=== PATIENT | male | born 1945 | race Caucasian/White ===

== ENCOUNTER 2025-08-28 17:43 | Inpatient (IN) | payer MEDICARE, SELFPAY ==
[2025-08-28] VITALS (7 sets, daily range): BP systolic 125–151; BP diastolic 76–104; PULSE 84; BMI 17.2
--- NOTE | 2025-08-28 12:18 | ED.GENMED ---
History of Present Illness
<Ashlee Escobedo, CARDING MACHINE OPERATOR - Last Filed: 08/28/25 19:21>
General
Chief Complaint: Failure to Thrive
Source: patient, records and family (Spoke with son Albino on the phone)
Exam Limitations: clinical condition
Time Seen by Provider: 08/28/25 12:14
Nursing documentation reviewed up to this point in time: agreed with
History of Present Illness
History of Present Illness:
79-year-old male from [facility] with history of anemia, aphasia, HTN, gait dysfunction, Parkinson's, anxiety, CKD, HLD, encephalopathy, TBI, attempting to answer questions and very mild whispers, unable to understand.
Spoke with Arabella DAVEY, states the DON has reported that pt has lost 17 pounds since May, and he has not been eating. Sent here for weight loss.
Phy Exam
<Ashlee Escobedo, CARDING MACHINE OPERATOR - Last Filed: 08/28/25 19:21>
Physical Exam
Physical Exam:
GENERAL: No acute distress. Alert. Cachectic. Frail.
CONSTITUTIONAL: Afebrile.
EYES: clear, conjunctivae normal
ENMT: dry mucus membranes
RESPIRATORY: Regular respirations, nonlabored, lungs clear.
CARDIOVASCULAR: Regular rate and rhythm, no murmurs, no rubs.
GI: Soft, nontender, normal BS
MUSCULOSKELETAL: Moves with ease. Well perfused.
SKIN: Warm, dry, pale
PSYCH: Normal mood and affect. Well kept, interactive and appropriate
NEUROLOGIC: Awake, alert, follows commands, No focal neurological deficits
Course
<Ashlee Escobedo CARDING MACHINE OPERATOR - Last Filed: 08/28/25 19:21>
Orders/Labs/Results
Orders:
Orders
08/28/25
Electrocardiogram (*1) Stat
Reason for Study: Chest Pain
Comment: DONE
08/28/25 12:18
Complete Blood Count/With Diff Urgent
Comprehensive Metabolic Panel Urgent
08/28/25 12:57
Case Management Consult ONCE
Case Management Consult: Discharge Planning
Comment: Family want him to go to another facility.
08/28/25 13:01
CT Head W/o Iv Contrast Urgent
Comment:
Reason For Exam: change in mental state
08/28/25 13:41
Occupational Therapy Consult [Ot Eval And Treat] Urgent
Treatment: eval for NH placement
Physical Therapy Consult [Pt Eval And Treat] Urgent
Activity Level: As Tolerated
08/28/25 14:37
0.9% Sodium Chloride 1000 ml [Nss] 1,000 ml IV BOLUS
08/28/25 15:10
Urinalysis Reflex To Culture Urgent
Date Specimen was Collected: 08/28/25
Time Specimen was Collected: 15:08
Urine Microscopic Reflex Cult Urgent
Urine Culture Urgent
DEMETRIO Source: U
Specimen Description:
Date Specimen was Collected: 08/28/25
Time Specimen was Collected: 15:08
08/28/25 15:56
Fosfomycin [Monurol] 3 gm PO ONCE ONE
08/28/25 16:19
CefTRIAXone [Rocephin] 1,000 mg .ROUTE .STK-MED ONE
08/28/25 16:22
CefTRIAXone [Rocephin] 1,000 mg IV NOW STA
08/28/25 16:54
Admit/Transfer Patient As Directed
Co-Sign Provider:
Level of Care: Inpatient admission
Assign to:: Medical/Surgical
Physician / Group: brittany may
Diagnosis: UTI
Reason for Hospitalization: UTI
Expected length of stay greater than two midnights?: Yes
ELOS- Estimated Length of Stay in days: 3
I certify the patient meets the requirements for IP care: Yes
08/28/25 16:55
PRN Pain Medication Management As Directed
May give lesser potent ordered pain med per pt: Yes
preference::
Protocol:: Medication orders for pain may be administered in a
manner that supports deferring to patient preference
when the pt is:
- Requesting an ordered lesser potent pain medication.
Least to most potent pain medications are defined
as: acetaminophen < NSAID < tramadol < opioids
(morphine, oxycodone, hydromorphone).
- Requesting a lesser dose of the same medication IF
ORDERED.
- Requesting a less intrusive route of administration
if both routes are prescribed by the provider (PO <
IV).
08/28/25 16:56
Code Status As Directed
Resuscitation Status: Do not resuscitate
Reached after discussion with pt or family/Healthcare POA: Yes
08/28/25 16:57
DNR Bracelet Application ONCE
08/28/25 18:45
0.9% Sodium Chloride 1000 ml [Nss] 1,000 ml IV 80 mls/hr
Acetaminophen [Tylenol] 650 mg PO Q4HPRN PRN
Bisacodyl [Dulcolax] 10 mg RECTAL [id number] PRN
Docusate W/Senna [Senokot-S] 1 tablet PO BIDPRN PRN
Polyethylene Glycol Powder [Miralax] 17 grams PO DAILYPRN PRN
08/28/25 18:45
Activity As Directed
Activity Level: As Tolerated
Vital Signs As Directed
Frequency: Per unit guidelines
Speech Therapy Eval & Treat Routine
DX Deep Vein Thrombosis Video Routine
08/28/25 19:09
Clonazepam [Klonopin] 0.125 mg PO TIDPRN PRN
08/28/25 20:00
Heparin 5,000 units SC Q12
trospium 20 mg PO BID
08/28/25 22:00
Amantadine [Symmetrel] 100 mg PO TID
Atorvastatin [Lipitor] 10 mg PO HS
Carbidopa/Levodopa [Sinemet 25-100] 2 tablet PO TID
Clonazepam [Klonopin] 0.125 mg PO HS
Melatonin 3 mg PO HS
Mirtazapine [Remeron] 7.5 mg PO HS
08/29/25 Breakfast
IDDSI 6 - Soft & Bite Sized
Liquid Modification: Mildly Thick ([place])
Basic Metabolic Panel IN AM
Complete Blood Count/No Diff IN AM
08/29/25 08:00
Carbidopa/Levodopa [Sinemet 25-100] 1.5 tablet PO DAILY
Carbidopa/Levodopa [Sinemet 25-100] 2.5 tablet PO DAILY
Docusate Sodium [Colace] 100 mg PO DAILY
FOLic ACID [Folvite] 1 mg PO DAILY
Lidocaine [Lidocaine 4% Patch] 1 patch TOPICAL DAILY
Apply Lidocaine patch(s) to:: lower back
Midodrine [ProAmatine] 2.5 mg PO DAILY
lidocaine 1 applic TOPICAL DAILY
08/29/25 16:00
CefTRIAXone [Rocephin] 1,000 mg IV Q24H
08/30/25 06:00
Basic Metabolic Panel IN AM
Complete Blood Count/No Diff IN AM
08/31/25 06:00
Basic Metabolic Panel IN AM
Complete Blood Count/No Diff IN AM
09/01/25 06:00
Basic Metabolic Panel IN AM
Complete Blood Count/No Diff IN AM
Abnormal Lab Results
08/28/25 08/28/25
12:18 15:10
WBC 11.7 H 10^3/uL
(4.8-10.8)
RBC 4.48 L 10^6/uL
(4.70-6.10)
Hgb 12.9 L g/dL
(13.0-18.0)
Hct 38.6 L %
(39.0-52.0)
Abs Immat Gran (auto) 0.1 H 10^3/uL
(0-0.05)
Absolute Neuts (auto) 9.8 H 10^3/uL
(1.4-6.5)
Absolute Lymphs (auto) 0.8 L 10^3/uL
(1.2-3.4)
Absolute Monos (auto) 0.9 H 10^3/uL
(0.1-0.6)
Neutrophils % 84.1 H %
(42.2-75.2)
Lymphocytes % 7.1 L %
(20.5-51.1)
Chloride 112 H mmol/L
(98-107)
BUN 74 H mg/dl
(9-20)
Creatinine 1.4 H mg/dL
(0.7-1.3)
Urine Ketones 1+ A
(Negative)
Ur Occult Blood Reflex 1+ A
(Negative)
Leukocyte Esterase Rfl 3+ A
(Negative)
Urine WBC (Reflex) 60-70 A /HPF
(0-5)
Urine Bacteria (Reflex) Many A
(Negative)
Urine Albumin (Reflex) 2+ A
(Neg - Trace)
08/28/25 12:18
08/28/25 12:18
Vital Signs
Initial and Last Documented VS:
Initial Vital Signs
Temp Pulse Resp Pulse Ox
97.8 F 88 18 99
08/28/25 12:11 08/28/25 12:11 08/28/25 12:11 08/28/25 12:11
Last Documented Vital Signs
Temp Pulse Resp BP Pulse Ox
98.0 F 79 17 132/80 97
08/28/25 19:02 08/28/25 19:02 08/28/25 19:02 08/28/25 19:02 08/28/25 19:02
Project Product Manager consulted with Physician
Project Product Manager consulted with physician?: Yes
Name of Physician Consulted: Milton
<Seth Dinh Rose, DO - Last Filed: 08/28/25 16:37>
Orders/Labs/Results
Orders:
Orders
08/28/25
Electrocardiogram (*1) Stat
Reason for Study: Chest Pain
Comment: DONE
08/28/25 12:18
Complete Blood Count/With Diff Urgent
Comprehensive Metabolic Panel Urgent
08/28/25 12:57
Case Management Consult ONCE
Case Management Consult: Discharge Planning
Comment: Family want him to go to another facility.
08/28/25 13:01
CT Head W/o Iv Contrast Urgent
Comment:
Reason For Exam: change in mental state
08/28/25 13:41
Occupational Therapy Consult [Ot Eval And Treat] Urgent
Treatment: eval for NH placement
Physical Therapy Consult [Pt Eval And Treat] Urgent
Activity Level: As Tolerated
08/28/25 14:37
0.9% Sodium Chloride 1000 ml [Nss] 1,000 ml IV BOLUS
08/28/25 15:10
Urinalysis Reflex To Culture Urgent
Date Specimen was Collected: 08/28/25
Time Specimen was Collected: 15:08
Urine Microscopic Reflex Cult Urgent
Urine Culture Urgent
DEMETRIO Source: U
Specimen Description:
Date Specimen was Collected: 08/28/25
Time Specimen was Collected: 15:08
08/28/25 15:56
Fosfomycin [Monurol] 3 gm PO ONCE ONE
08/28/25 16:19
CefTRIAXone [Rocephin] 1,000 mg .ROUTE .STK-MED ONE
08/28/25 16:22
CefTRIAXone [Rocephin] 1,000 mg IV NOW STA
08/28/25 16:54
Admit/Transfer Patient As Directed
Co-Sign Provider:
Level of Care: Inpatient admission
Assign to:: Medical/Surgical
Physician / Group: brittany may
Diagnosis: UTI
Reason for Hospitalization: UTI
Expected length of stay greater than two midnights?: Yes
ELOS- Estimated Length of Stay in days: 3
I certify the patient meets the requirements for IP care: Yes
08/28/25 16:55
PRN Pain Medication Management As Directed
May give lesser potent ordered pain med per pt: Yes
preference::
Protocol:: Medication orders for pain may be administered in a
manner that supports deferring to patient preference
when the pt is:
- Requesting an ordered lesser potent pain medication.
Least to most potent pain medications are defined
as: acetaminophen < NSAID < tramadol < opioids
(morphine, oxycodone, hydromorphone).
- Requesting a lesser dose of the same medication IF
ORDERED.
- Requesting a less intrusive route of administration
if both routes are prescribed by the provider (PO <
IV).
08/28/25 16:56
Code Status As Directed
Resuscitation Status: Do not resuscitate
Reached after discussion with pt or family/Healthcare POA: Yes
08/28/25 16:57
DNR Bracelet Application ONCE
08/28/25 18:45
0.9% Sodium Chloride 1000 ml [Nss] 1,000 ml IV 80 mls/hr
Acetaminophen [Tylenol] 650 mg PO Q4HPRN PRN
Bisacodyl [Dulcolax] 10 mg RECTAL [id number] PRN
Docusate W/Senna [Senokot-S] 1 tablet PO BIDPRN PRN
Polyethylene Glycol Powder [Miralax] 17 grams PO DAILYPRN PRN
08/28/25 18:45
Activity As Directed
Activity Level: As Tolerated
Vital Signs As Directed
Frequency: Per unit guidelines
Speech Therapy Eval & Treat Routine
DX Deep Vein Thrombosis Video Routine
08/28/25 19:09
Clonazepam [Klonopin] 0.125 mg PO TIDPRN PRN
08/28/25 20:00
Heparin 5,000 units SC Q12
trospium 20 mg PO BID
08/28/25 22:00
Amantadine [Symmetrel] 100 mg PO TID
Atorvastatin [Lipitor] 10 mg PO HS
Carbidopa/Levodopa [Sinemet 25-100] 2 tablet PO TID
Clonazepam [Klonopin] 0.125 mg PO HS
Melatonin 3 mg PO HS
Mirtazapine [Remeron] 7.5 mg PO HS
08/29/25 Breakfast
IDDSI 6 - Soft & Bite Sized
Liquid Modification: Mildly Thick ([place])
Basic Metabolic Panel IN AM
Complete Blood Count/No Diff IN AM
08/29/25 08:00
Carbidopa/Levodopa [Sinemet 25-100] 1.5 tablet PO DAILY
Carbidopa/Levodopa [Sinemet 25-100] 2.5 tablet PO DAILY
Docusate Sodium [Colace] 100 mg PO DAILY
FOLic ACID [Folvite] 1 mg PO DAILY
Lidocaine [Lidocaine 4% Patch] 1 patch TOPICAL DAILY
Apply Lidocaine patch(s) to:: lower back
Midodrine [ProAmatine] 2.5 mg PO DAILY
lidocaine 1 applic TOPICAL DAILY
08/29/25 16:00
CefTRIAXone [Rocephin] 1,000 mg IV Q24H
08/30/25 06:00
Basic Metabolic Panel IN AM
Complete Blood Count/No Diff IN AM
08/31/25 06:00
Basic Metabolic Panel IN AM
Complete Blood Count/No Diff IN AM
09/01/25 06:00
Basic Metabolic Panel IN AM
Complete Blood Count/No Diff IN AM
Abnormal Lab Results
08/28/25 08/28/25
12:18 15:10
WBC 11.7 H 10^3/uL
(4.8-10.8)
RBC 4.48 L 10^6/uL
(4.70-6.10)
Hgb 12.9 L g/dL
(13.0-18.0)
Hct 38.6 L %
(39.0-52.0)
Abs Immat Gran (auto) 0.1 H 10^3/uL
(0-0.05)
Absolute Neuts (auto) 9.8 H 10^3/uL
(1.4-6.5)
Absolute Lymphs (auto) 0.8 L 10^3/uL
(1.2-3.4)
Absolute Monos (auto) 0.9 H 10^3/uL
(0.1-0.6)
Neutrophils % 84.1 H %
(42.2-75.2)
Lymphocytes % 7.1 L %
(20.5-51.1)
Chloride 112 H mmol/L
(98-107)
BUN 74 H mg/dl
(9-20)
Creatinine 1.4 H mg/dL
(0.7-1.3)
Urine Ketones 1+ A
(Negative)
Ur Occult Blood Reflex 1+ A
(Negative)
Leukocyte Esterase Rfl 3+ A
(Negative)
Urine WBC (Reflex) 60-70 A /HPF
(0-5)
Urine Bacteria (Reflex) Many A
(Negative)
Urine Albumin (Reflex) 2+ A
(Neg - Trace)
08/28/25 12:18
08/28/25 12:18
Vital Signs
Initial and Last Documented VS:
Initial Vital Signs
Temp Pulse Resp Pulse Ox
97.8 F 88 18 99
08/28/25 12:11 08/28/25 12:11 08/28/25 12:11 08/28/25 12:11
Last Documented Vital Signs
Temp Pulse Resp BP Pulse Ox
98.0 F 79 17 132/80 97
08/28/25 19:02 08/28/25 19:02 08/28/25 19:02 08/28/25 19:02 08/28/25 19:02
<Ashlee Escobedo, CARDING MACHINE OPERATOR - Last Filed: 08/28/25 19:21>
MDM/Problems Addressed
Differential Diagnosis Includes:
Failure to thrive, dehydration
MDM/Problems Addressed:
79-year-old male from [facility] with history of anemia, aphasia, HTN, gait dysfunction, Parkinson's, anxiety, CKD, HLD, encephalopathy, TBI, attempting to answer questions and very mild whispers, unable to understand.
Spoke with Arabella DAVEY, states the DON has reported that pt has lost 17 pounds since May, and he has not been eating. Sent here for weight loss.
When asked if he has any pain, pt states 'no.'
He appears in no acute distress.
CBC unremarkable
CMP unremarkable
EKG NSR
1:00 PM:
I spoke with son Albino, who states they want him out of that residential. He states family was hoping he could get a Neurologist to evaluate pt. for his change in status. He is not eating, his therapy has been discontinued...
I asked if I could speak frankly and he said yes, I told him I think his father is dying, it's not unusual to stop eating at this point. I have no reason medically to admit him. Have they considered Hospice or Palliative Care? He states again,
family was thinking if he could be admitted we could get him into a different place, they would start therapy up again and get him eating...
Head CT ordered
CM consult in.
I informed son CHAGO will call him after evaluation. He was appreciative of the care.
Pt called out 'Vaseline!' and states his butt hurts. Turned, sacrum reddened, skin intact, area massaged and ointment applied.
2:30 PM:
IVFs ordered for elevated BUN/creat (dehydration)
Head CT showing nothing acute
CM spoke with and got a much more detailed history.
4:00 p.m.
U/A: WBC 60-70, neg nitrite, 3+ leukocytes, many bacteria. Plan: Monurol and urine culture pending
Results that would indicate malnutrition such as albumin and total protein are normal
No medical indication for admission
CM informed pt would be going back to NH
4:15 p.m.
Pt with UTI, pt cannot swallow, will admit for IV antibiotics.
Son Albino notified
Hospitalist notified of admission.
<Ashlee Escobedo CARDING MACHINE OPERATOR - Last Filed: 08/28/25 19:21>
*Pulse Oximetry
SaO2: 99
Oxygen Mode of Delivery: Room air
Patient hypoxic: no
*EKG
EKG Intrepretation Date: 08/28/25
Interpretation: normal
Heart Rate: 88
Rate: normal
Rhythm: sinus
[place]: normal axis
Interval: normal interval
QRS Pattern: normal QRS
Ischemia: no ischemia
*Critical Care Note
Total Time (30-74mins, 75-104mins- exclusive of procedures): Not Applicable
ED Attending Note
<Ashlee Escobedo CARDING MACHINE OPERATOR - Last Filed: 08/28/25 19:21>
-
Portions of this chart may have been created with voice recognition software.� Occasional wrong word or��sound alike� substitutions may have occurred due to the inherent limitations of voice recognition software.
<Seth Rose DO - Last Filed: 08/28/25 16:37>
ED Attending Note
Patient seen and examined by attending physician: Yes
I performed the substantive portion of visit, reviewed & personally made and approve the management plan that is documented in note by myself or TATYANA.: Yes
ED Attending Note:
I evaluated the patient bedside. The patient is ill-appearing. Sunken eyes, very dry oral mucosa, creatinine is 1.4 with virtually no muscle mass, suspect significant dehydration. He was given IV fluids. 1+ ketonuria noted. Urinalysis suggest
infection as well.
Discharge Plan
Departure
Patient Disposition: Admit
Date of Disposition: 08/28/25
Time of Disposition: 16:20
Presentation/result/management discussed w/ accepting MD/DO: Hospitalist
Patient with high blood pressure during this ER visit?: No
Condition: Fair
Discharge Problem:
Adult failure to thrive, Acute UTI
Interventions
Interventions:
*Risk Screen - Suicide Last Done: 08/28/25 12:15
*General Assessment Last Done: 08/28/25 18:44
*Neglect/Abuse Screening Last Done: 08/28/25 12:15
*ED COVID-19 Vaccine History Last Done: 08/28/25 12:11
*ED Influenza Vaccine History Last Done: 08/28/25 12:11
*Nursing Disposition Last Done: 08/28/25 18:44
Discharge Date and Time
Discharge Date/Time: 08/28/25 18:45
[2025-08-28 12:32] LABS: Hematocrit 38.6 % (39.0-52.0); Hemoglobin 12.9 g/dL (13.0-18.0); Mean Corp Hgb Conc. 33.4 g/dL (33.0-37.0); Mean Corpuscular Volume 86.2 fL (80.0-94.0); Nucleated Red Blood Cells % 0 % (-); Platelet Count 317 10^3/uL (130-400); Red Cell Dist. Width 13.9 % (11.5-14.5)
[2025-08-28 12:40] LABS: ALT (SGPT) < 10 U/L (0-50); AST (SGOT) 19 U/L (17-59); Albumin 4.0 g/dl (3.5-5.0); Alkaline Phosphatase 108 U/L (38-126); Blood Urea Nitrogen 74 mg/dl (9-20); Calcium 10.1 mg/dl (8.4-10.2); Carbon Dioxide 26 mmol/L (22-30); Chloride 112 mmol/L (98-107); Glucose 89 mg/dl (70-99); Potassium 5.0 mmol/L (3.5-5.1); Sodium 145 mmol/L (135-145); Total Protein 7.1 g/dl (6.3-8.2); eGFR 51.45
[2025-08-28] MEDS: NSS 1000 IV ×2 (14:51→19:59)
--- NOTE | 2025-08-28 15:14 | CM ---
Addendum entered by Josie Fuentes 08/28/25 16:19:
Call from [facility]- pt will be planned for admission now
She will update family
Original Note:
ED CM consult for dc planning- family requesting alternative SNF arrangements
No plan for hospital admissions at this time
Call from spouse/Deanna Lagos (m) [phone] (h) [phone]
They are not interested in hospice at this time and are hopeful for continued to rehab
Pt and spouse typically reside together in a 2SH with 1 threshold step to enter in [place], full flight to 2nd floor
Up until April 2025, pt was AxO 3x, ambulatory with use of a WW or SPC and able to negotiate steps
Pt had fall secondary to Parkinsons in April 2025 and admitted to [facility]
He was discharged to [facility] and then to [facility]
Medicare LCD was 07/18/25 and pt has been private pay since
Of note, she noted a fall 2022 resulting in a brain bleed but pt had recovered from injury
Spouse notes rapid decline in physical abilities and cognition since admission to SNF
She has hired [facility] for estate planning and to assist to transfer to alternate SNF for LTC
She has tours scheduled with [facility], [facility], [facility] and [facility]
Pt has Medicare primary and without qualifying stay
Pt is not eligible for [employer] waiver
Calls with [facility] as financial marilia pending- closed for admissions
Per [facility], no LTC beds available until end of the week
Spouse aware pt without qualifying stay
Pt unable to be transferred to alternative SNF as a STR to LTC bridge
She will continue to work with assistant prosecuting attorney for LTC planning and transfer to new facility
She is aware and in agreement with return to [facility]
Update provided to [facility] nursing and has accepted for SNF return
Discharge Disposition- return [facility] LTC via BLS
Phone- [phone] Fax- [phone]
[2025-08-28 15:22] LABS: Urine Character Slightly Cloudy (Clear)
[2025-08-28 15:29] LABS: Urine Squamous Cell 0-2 /LPF (Few)
[2025-08-28 15:30] LABS: Urine Red Blood Cell 0-2 /HPF (0-2); Urine White Cell 60-70 /HPF (0-5)
[2025-08-28] MEDS: ROCEPHIN 1000 MG IV (16:35)
--- NOTE | 2025-08-28 16:36 | HPS.HSE ---
Family Physician
-
Family Physician: Enrique Little,
Chief Complaint
-
change in MS
History of Present Illness
79-year-old male from [facility] with history of anemia, aphasia, HTN, gait dysfunction, Parkinson's, anxiety, CKD, HLD, encephalopathy, TBI presented to us with change in mental status. patient had a fall secondary to Parkinson
disease in April.he was admitted to [facility] and from there he was transferred to [facility]. . since then, he has rapid decline physically and mentally. he is not eating and losing weight. he is also noted very fatigue and weak. family does not
want him at the same [facility].ROS is limited as he is not able to answer appropirately.
Upon arrival he was noted to have UTI. Initiated on ceftriaxone. Admitting for further management
Attempted to reach son. He is not answering the phone
Medical History
Past Medical History
Past Medical History: Reports Other
Additional Past Medical History:
CKD, anemia, anxiety, hypertension, severe protein calorie malnutrition, hyperlipidemia, toxic encephalopathy, Parkinson disease with dyskinesia, traumatic brain injury, aphasia, dysphagia
Past Surgical History: Reports Other
Social History
Unable to obtain full social history at this time due to: Dementia
Family History
Family History: Not pertinent
Allergies / Home Medications
Allergies reflects when Allergies were last updated in [facility].
Home Medications with original date entered in [facility]
Allergy/Medication List:
Allergies
Allergy/AdvReac Type Severity Reaction Status Date / Time
No Known Allergies Allergy Unverified 08/28/25 12:16
Home Medications
acetaminophen 325 mg tablet (Tylenol) 650 mg PO Q6HPRN PRN mild pain 08/28/25
amantadine HCl 100 mg capsule 100 mg PO TID parkinsons 08/28/25
bisacodyl 10 mg rectal suppository (Dulcolax (bisacodyl)) 10 mg HI DAILYPRN PRN if no bm by 3rd day give on 4th day 08/28/25
calcium 600 mg (as carbonate)-vitamin D3 10 mcg (400 unit) tablet (Calcium 600 + D(3)) 1 tab PO DAILY Supplement 08/28/25
carbidopa 25 mg-levodopa 100 mg tablet 1.5 tab PO DAILY parkinsons 08/28/25
carbidopa 25 mg-levodopa 100 mg tablet 2 tab PO TID 08/28/25
carbidopa 25 mg-levodopa 100 mg tablet 2.5 tab PO DAILY parkinsons 08/28/25
cholecalciferol (vitamin D3) 25 mcg (1,000 unit) tablet (Vitamin D3) 25 mcg PO DAILY Supplement 08/28/25
clonazepam 0.125 mg disintegrating tablet 0.125 mg PO HS Mental Health/Anxiety 08/28/25
clonazepam 0.125 mg disintegrating tablet 0.125 mg PO TIDPRN PRN anxiety 08/28/25
coQ10 (ubiquinol) 200 mg capsule 200 mg PO DAILY Supplement 08/28/25
docusate sodium 100 mg capsule (Colace) 100 mg PO DAILY Constipation 08/28/25
folic acid 1 mg tablet 1 mg PO DAILY Supplement 08/28/25
lidocaine 4 % topical gel 1 applic topical DAILY right knee 08/28/25
lidocaine 4 % topical patch 1 patch topical DAILY lower back 08/28/25
magnesium hydroxide 400 mg/5 mL oral suspension (Milk of Magnesia) 2,400 mg PO DAILYPRN PRN if no bm by 3rd day 08/28/25
melatonin 3 mg tablet 3 mg PO HS Sleep 08/28/25
midodrine 2.5 mg tablet 2.5 mg PO DAILY 08/28/25
mirtazapine 7.5 mg tablet 7.5 mg PO HS Sleep 08/28/25
selenium 200 mcg capsule 200 mcg PO DAILY Supplement 08/28/25
simvastatin 20 mg tablet (Zocor) 20 mg PO HS High Cholesterol 08/28/25
sodium phosphates 19 gram-7 gram/118 mL enema (Fleet Enema) 118 ml HI DAILYPRN PRN if no bm by the end on day 4 08/28/25
therapeutic multivitamin 1 tab PO DAILY Supplement 08/28/25
trospium 20 mg tablet 20 mg PO BID Urinary Issue 08/28/25
Review of Systems
-
Unable to obtain full review of systems at this time due to: Dementia
Physical Exam
Vital Signs
Vital Signs
Temp Pulse Resp BP Pulse Ox
97.8 F 84 16 125/104 98
08/28/25 12:11 08/28/25 15:07 08/28/25 15:07 08/28/25 15:07 08/28/25 15:07
Physical Exam
General: Well Developed, Well Nourished and No Apparent Distress
HEENT: NormoCephalic, Moist mucous membranes and Atraumatic
Respiratory: Clear
Cardiac: S1/S2 and Regular Rhythm; No Murmur or Rub
GI: Soft, Non Tender, Non Distended and Normal Bowel Sounds; No Organomegaly
Rectal: Deferred by Provider
Musculoskeletal: No Clubbing, No Cyanosis and No Edema
Skin: No Rash
Neuro: Nonfocal/grossly intact
Laboratory Results
-
08/28/25 12:18
08/28/25 12:18
Laboratory Results
Total Bilirubin 1.0 mg/dl (0.2-1.3) 08/28/25 12:18
AST 19 U/L (17-59) 08/28/25 12:18
ALT < 10 U/L (0-50) 08/28/25 12:18
Alkaline Phosphatase 108 U/L (38-126) 08/28/25 12:18
Data Reviewed
-
CT Scan: Report Reviewed by me
Lab Data: Labs Reviewed by me
Impression/Plan
-
# Metabolic encephalopathy concern for urinary tract infection
- WBCs 11.7
- IV ceftriaxone continue
- Tylenol p.o. for fever or pain
-head CT negative.
# Dysphagia/failure to thrive
- Patient on mechanical soft, nectar thick liquid and [facility]
- Speech eval
# Acute kidney injury likely dehydration
- Creatinine 1.4
- Continue fluids
- Continue to monitor BMP
# Parkinson disease with dyskinesia
-Amantadine continued
- Carbidopa continue
-Clonazepam continued for anxiety
- Melatonin continued for sleep
- Mirtazapine for sleep
# Hyperlipidemia
- Zocor continue
# Hypotension
- Midodrine continued
# DVT prophylaxis
- Heparin subcu
#CODE STATUS#
- DNR
--- NOTE | 2025-08-28 17:10 | W.PN.UPDATE ---
Update Note
Progress Note Update
I could not get any information from the patient has AMS
Information gathered by chart review and speaking with the ER staff.
This note serves as an addendum to the H&P by golf course equipment operator TATYANA�
Neris BARRAGAN�
HPI
79M Res of [facility]
PMHX: Dementia, PKDz, TBI, Aphasia, HTN, gait dysfunction, anxiety, CKD, HLD, encephalopathy,severe protein calorie malnutrition
- pw AMS
- fall secondary to Parkinson disease in April.he was admitted to [facility] and from there he was transferred [facility] jail. .
- report rapid decline physically and mentally. he is not eating and losing weigh
- very fatigue and weak. family does not want him at the same jail.ROS is limited as he is not able to answer appropriately.
Upon arrival he was noted to have UTI. Initiated on ceftriaxone.
Relevant VS
Temp Pulse Resp BP Pulse Ox
97.8 F 78 14 139/84 99
08/28/25 12:11 08/28/25 16:45 08/28/25 16:45 08/28/25 16:00 08/28/25 15:15
PE
Gen: lethargic , severely cathexic and emancipated with just skin and bone
HEENT: drym
Neck: supple
Lungs: CTA
Cor: S1 S2
Abdomen:�soft , NT , NG
PRESS OPERATOR AUTOMATIC: lethargic
MS: no edema
Psych: lethargica - limited
Relevant Data
08/28/25 08/28/25
12:18 15:10
WBC 11.7 H
Hgb 12.9 L
Potassium 5.0
Carbon Dioxide 26
BUN 74 H
Creatinine 1.4 H
eGFR 51.45
Leukocyte Esterase Rfl 3+ A
Urine RBC 0-2
Urine WBC (Reflex) 60-70 A
Urine Bacteria (Reflex) Many A
Urine Albumin (Reflex) 2+ A
HCT
No acute intracranial abnormality noted
NO PRIOR hospitalist admission:
ASSESSMENT & PLAN
AMS due to TME secondary to UTI
- NEG HCT
- UCx sent
- agree with IV CFTX
- Tylenol PTN
MICHAEL likely dehydration due to poor POs
- IVF MS
- Trend Cr
Chr Dysphagia
Chr FTT FTT:
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
- on mechanical soft + NTL @ NH
- Speech eval
- CRM eval for hospice care if family agrees
Parkinson disease with dyskinesia
Anxiety
- SOIL FERTILITY SPECIALIST Amantadine and Carbidopa continue
- Clonazepam continued for anxiety
- Melatonin continued for sleep
- Mirtazapine for sleep
Hyperlipidemia
- Zocor continue
Hypotension
- Midodrine continued
Grave prognosis with severely cathexic and emancipated with just skin and bone,
- CRM eval for hospice care if family agrees
DVT Px: SQH
Code: DNR per [facility] papaers
OBS MS
--- NOTE | 2025-08-28 18:39 | PTCARENOTE ---
pt yelling out stating he has to urinate. urinal provided multiple times w/o success. bladder scanned initially for 273. pt then saturated Covidien w. urine. pt bladder scanned again for 280. house day care supervisor notfied. one time order or straight cath
obtained. pt straight cathed for 200cc's of aminata urine. pt now sleeping.
--- NOTE | 2025-08-28 19:20 | PTCARENOTE ---
Pt arrived to unit from ED via stretcher. Pulled over by staff. Son at bedside to answer admission questions. Pt only arousable to tactile stimuli. Son reporting that pt's mentation has declined over the past few weeks and has been 'mostly
sleeping.' Pt not alert enough to perform swallow screening. Pt to be NPO per protocol. Plan of care ongoing.
[2025-08-28] MEDS: HEPARIN SC ×2 (20:00→20:16)
[2025-08-28] MEDS: REMOVE LIDOCAINE PATCH REMOVE (20:08)
--- NOTE | 2025-08-29 03:30 | PTCARENOTE ---
Pt now more alert and frequently screaming out 'Water!' This RN swabbed patient's mouth with a small amount of water. Pt coughing after. Educated pt about being NPO due to difficulty swallowing and aspiration risk. Pt oriented to self. Frequently
calling out. Pt moved to private room in 333. Pt complaining about pain in back and neck. QUINTON Hung notified. Orders for Ofirmev placed. Refer to MAR. Plan of care ongoing.
[2025-08-29] MEDS: OFIRMEV 100 IV (04:06)
[2025-08-29 05:45] LABS: Hematocrit 40.3 % (39.0-52.0); Hemoglobin 12.7 g/dL (13.0-18.0); Mean Corp Hgb Conc. 31.5 g/dL (33.0-37.0); Mean Corpuscular Volume 92.0 fL (80.0-94.0); Platelet Count 288 10^3/uL (130-400); Red Cell Dist. Width 13.8 % (11.5-14.5)
[2025-08-29 06:05] VITALS: BP 145/79
[2025-08-29] MEDS: DILAUDID 0.25 MG IV ×3 (06:12→22:00)
[2025-08-29 06:13] LABS: Blood Urea Nitrogen 65 mg/dl (9-20); Calcium 9.2 mg/dl (8.4-10.2); Carbon Dioxide 24 mmol/L (22-30); Chloride 117 mmol/L (98-107); Estimated Creatinine Clearance 36 ml/min; Glucose 71 mg/dl (70-99); Potassium 4.4 mmol/L (3.5-5.1); Sodium 151 mmol/L (135-145); eGFR > 60.00
--- NOTE | 2025-08-29 06:18 | PTCARENOTE ---
Pt screaming out complaining of severe back and neck pain. QUINTON Hung notified. One time dose of IV dilaudid ordered. Refer to MAR. Plan of care ongoing.
[2025-08-29 08:28] VITALS: BP 101/72
--- NOTE | 2025-08-29 08:35 | PTOTSP ---
Speech Language Pathology
Pt seen for clinical bedside swallow evaluation. Son present at bedside. He stated that modified diet was started at [facility]. He does not believe he has had an instrumental swallowing assessment before.
P.O. trials of mildly thick liquids via tsp and thin liquids via pipetted straw provided. Prolonged bolus formation and A-P transit noted with multiple swallows per bolus, up to 7, likely indicative of pharyngeal residue. Immediate cough noted
with thin liquids. Cough was brief. Asked for strong cough, and pt expectorated piece of what looked like a potato.
Asked pt why he has not been eating with yes/no questions. He denied feeling like he was having trouble swallowing. Shook head yes when asked if he had no appetite.
Pt is at a high risk for aspiration given significant deconditioning and hx of Parkinson's disease/modified diet. Discussed VSE vs FEES with pt/son at bedside. Son believes pt will be able to sit upright for study and would prefer less invasive
study of VSE.
Recommend:
(1) VSE
(2) Strict NPO
(3) Oral care 4x/day with suctioning as needed
(4) Non-oral meds
(5) Hold on aspiration risk hydration protocol (ARHP) until VSE completed
(6) BOAT DRIVER to continue to follow
[2025-08-29] MEDS: D5/0.45%NACL 1000 IV (09:19)
[2025-08-29] MEDS: HEPARIN 5000 UNITS SC (09:20)
[2025-08-29] MEDS: LIDOCAINE 4% PATCH 1 PATCH TOPICAL (09:20)
[2025-08-29] MEDS: NSS IV (09:22)
--- NOTE | 2025-08-29 10:55 | WOUNDNOTE ---
WON RN note: Patient admitted with acute UTI, failure to thrive.
See H&P for complete history.
PMH:CKD, anemia, anxiety, hypertension, severe protein calorie malnutrition, hyperlipidemia, toxic encephalopathy, Parkinson disease with dyskinesia, traumatic brain injury, aphasia, dysphagia
Past Surgical History: Reports Other
Wound Location and type/assessment: Patient admitted with: dry scabbed abrasions on legs from previous fall, open to air. Patient is extremely cachectic in appearance, states he does not wish to eat. Nurse confirmed he is allowed to eat now but
refusing to eat. Patient turned self with minimal assist. Sacrum is non blanchable red, stage 1 PI. B/L heels also boggy and barely blanchable, stage 1 PI. Repositioned patient in bed for comfort.
Appetite:Poor.
Pressure redistribution devices in place:On air mattress, pillow under calves.
Plan: Vaseline applied to legs and abrasions. Foams applied to sacrum and heels, offloaded with pillow under calves. Son at bedside made aware that PI's could become worse if patient continues to refuse food.
Son states he understands. Will confirm orders with hospitalist and updated nurse.
Updated care plan and will follow as needed.
Note to case management of equipment requested for discharge: TBD
--- NOTE | 2025-08-29 10:57 | WOUNDNOTE ---
BILATERAL LOWER LEGS
--- NOTE | 2025-08-29 11:08 | WOUNDNOTE ---
SERA RN NOTE ADDENDUM: Patient also has a intact eschar on scalp from skin cancer. Patient states he had treatment for this in past. No drainage, is currently open to air, recommend keep open to air. If starts to drain can cover with silicone foam.
--- NOTE | 2025-08-29 11:45 | W.PN.HOSP.TC ---
Today's Communication/Plan
-
Monitor vital signs and see plan
Monitor mental status
Switch fluid to D5 half-normal
Repeat sodium later today
VSE
Continue with antibiotic
Follow cultures
Discussed with son
Assessment / Plan
Assessment / Plan
General: Lethargic, severe cachexia
HEENT: Dry mucous membrane, normocephalic
Respiratory: Clear, No wheeze
Cardiac: S1/S2 and Regular Rhythm
GI: Soft, Non Tender, Non Distended
Musculoskeletal: No Edema
Neuro: Lethargic
Toxic Metabolic encephalopathy Likely secondary to urinary tract infection
Urine culture with gram-negative bacilli, follow culture
- IV ceftriaxone continue
Monitor mental status
- Tylenol p.o. for fever or pain
-head CT negative.
# Dysphagia/failure to thrive
Cachexia on exam
- Patient on mechanical soft, nectar thick liquid at alf
- Speech eval re NPO; VSE ordered
Discussed with son, patient would not want any feeding tube however wants to be treated
# Acute kidney injury likely dehydration
- Creatinine 1.4 on admission
Now improving
- Continue fluids
- Continue to monitor BMP
Acute hyponatremia
Switch fluid to D5 half-normal. Repeat sodium later today
# Parkinson disease with dyskinesia
-Amantadine continued
- Carbidopa continue
-Clonazepam continued for anxiety
- Melatonin continued for sleep
- Mirtazapine for sleep
# Hyperlipidemia
- Zocor continue
# Hypotension
- Midodrine continued
# DVT prophylaxis
- Heparin subcu
#CODE STATUS#
- DNR
Discussed with son. Will see how patient does with antibiotics.
I spent a total of 52 minutes with the patient or on the floor. More than 50% of this time involved counseling and coordination of care.
Anticipated Discharge: > 48 hours
Subjective/Interval History
-
Date of Service: August 29, 2025
Lethargic
Objective Data
-
Labs:
Laboratory Results
08/29/25 08/29/25
05:23 15:00
WBC 9.8
Hgb 12.7 L
Hct 40.3
Plt Count 288
Sodium 151 H Pending
Potassium 4.4
Chloride 117 H
Carbon Dioxide 24
BUN 65 H
Creatinine 1.1
Glucose 71
Calcium 9.2
Vital Signs:
Vital Signs
Temp Pulse Resp BP Pulse Ox
98.2 F 95 16 101/72 92
08/29/25 08:28 08/29/25 08:28 08/29/25 08:28 08/29/25 08:28 08/29/25 08:28
I&O
08/28/25 08/29/25 08/30/25
06:59 06:59 06:59
Output Total 200 / 200
Balance -200 / -200
--- NOTE | 2025-08-29 13:13 | PN.CDI ---
CDI
- -
CDI:
Physician Documentation Request
Admit Date: 08/28/25 17:[address] Henderson,
[facility] is using an adapted version of the 2016 Third International Consensus Definitions for Sepsis and Septic Shock (Sepsis-3) where sepsis is defined as life threatening organ dysfunction caused by a deregulated host response to infection.
Please reference the official [facility] Sepsis Recognition Tool for further information, which can be found on the Intranet under Infection Prevention.
Clinical Indicators Include:
08/29 PN, 'Toxic Metabolic encephalopathy Likely secondary to urinary tract infection'
Treatment: Ceftriaxone 1,000 mg IV q 24h
Based on your medical judgment, can you further clarify the diagnosis being monitored/treated this admission?
�Sepsis due to UTI with organ dysfunction of metabolic encephalopathy
�UTI only
�Other
�Clinically unable to determine
Use of terms such as suspected, likely, concern for, or probable (associated with a specific diagnosis that is being evaluated, monitored, or treated as if it exists) are acceptable and can be coded in the inpatient setting when documented at the
time of discharge.
Please use your independent medical judgement in providing your response.
Thank you,
LEONID Christine RN
CDI Specialist
available via tiger text
--- NOTE | 2025-08-29 13:24 | PN.CDI ---
CDI
- -
CDI:
Physician Documentation Request
Admit Date: 08/28/25 17:43
Dear Doctor Santiago,
Clinical Indicators:
Patient admitted with UTI and failure to thrive.
08/29 [facility] RN skin/wound assessment: Sacrum , Stage 1 Pressure Injury, POA
Bilateral Heels, Stage 1 Pressure Injury, POA
Treatment: pressure redistribution devices, foam dressings
Physician documentation of the type and location of wounds is required for compliant documentation. Based on the above clinical findings and your assessment, please provide the following in your progress note:
1. Location of the ulcer/wound, including laterality.
2. Type (etiology) of ulcer/wound:
- Pressure (decubitus) ulcer
- Other
- Unable to determine
3. If a pressure ulcer, please also include the stage* of the ulcer:
- Stage 1 - Skin intact, non-blanchable redness
- Stage 2 - Partial thickness loss of dermis, includes intact or open blister
- Stage 3 - Full thickness tissue not including bone, tendon or muscle
- Stage 4 - Full thickness tissue loss, including exposed bone, tendon or muscle
- Unstageable - Full thickness loss in which the base of the ulcer is covered by slough (yellow, bello, rossi, green or brown) and/or eschar (bello, brown or black) in the wound bed.
- Unable to determine
Use of terms such as suspected, likely, concern for, or probable (associated with a specific diagnosis that is being evaluated, monitored, or treated as if it exists) are acceptable and can be coded in the inpatient setting, when documented at the
time of discharge.
Thank you,
LEONID Christine RN
CDI Specialist
available via tiger text
Please use your independent medical judgment in providing your response.
*Source: National Pressure Ulcer Advisory Panel (NPUAP)
--- NOTE | 2025-08-29 14:01 | CM ---
Spoke with son Gerry [phone] he was visiting with patient.
Son requested hospice , Referral made and referral placed in care port. Naida Stuart aware.
Son gave CM number to [facility] information technology program [facility] [phone] and [phone]. She works with family for dc planning.
Additional SNF placed in care port to [facility].
PLAN Locate SNF.
[2025-08-29 14:09] VITALS: BMI 17.2
[2025-08-29] MEDS: TYLENOL 650 MG PO (14:30)
--- NOTE | 2025-08-29 14:52 | HOSPNOTE ---
Hospice referral received. Called son Albino and left a voicemail. More information to follow.
[2025-08-29 15:16] LABS: Sodium 150 mmol/L (135-145)
[2025-08-29] MEDS: STERILE WATER FOR INJECTION 10 ML IV (15:17)
[2025-08-29] MEDS: ROCEPHIN 1000 MG IV (15:18)
--- NOTE | 2025-08-29 15:26 | PTOTSP ---
Speech Therapy Evaluation:
Patient presents with moderate oral and profound pharyngeal dysphagia. There was gross, silent aspiration across all liquid trials. Cued cough was weak and ineffective at clearing materials from airway/vestibule. VSE was terminated prior to
completion due to frequency and amount of aspiration with risk for decompensation. Suspect etiology of swallow dysfunction related to history of dysphagia, Parkinson�s, and TBI, compounded by generalized weakness in the setting of reduced PO
intake/FTT. Please see patient care note for full details of aspiration and swallowing physiology.
Recommend:
1. GOC - Safest diet recommendation would be NPO given gross aspiration across consistencies with poor airway clearance and inability to clear severe pharyngeal residue
2. If family opting for oral diet despite risks of aspiration, recommend puree and thin liquids given known negative pulmonary complications with aspiration of thickened liquids and weak cough response to cough dense solids out of airway
3. BIOLOGICAL CHEMIST to follow for education regarding results of VSE and for ongoing tx at the acute care level, pending patient/family wishes
[2025-08-29] MEDS: MORPHINE SULFATE 1 MG IV (15:28)
[2025-08-29 16:00] VITALS: BP 157/91
--- NOTE | 2025-08-29 16:06 | PTOTSP ---
Speech Therapy Education:
Completed family education following VSE. Discussed findings of moderate oral and profound pharyngeal dysphagia with recommendations for NPO. Outlined predisposing and precipitating risk factors of dysphagia that likely attributed to performance.
Outlined options for family including 1) NPO 2) placement of DHT with trial of dysphagia therapy, however unsure if swallow prognosis would improve given progressive nature of Parkinson's, severity of dysphagia, and gradual decline/lethargy/FTT 3)
Diet per pt/family wishes with acceptance of aspiration risks. Discussed safest diet recommendation would be puree and thin liquids given known negative pulmonary complication with aspiration of thickened liquids and poor cough strength to cough
dense materials out of airway. Discussed potential sequelae of aspiration including intubation if respiratory status declines (although pt is DNR) and even . Offered ways to mitigate development of pulmonary complication including thorough and
frequent oral care and increasing physical mobility as medically feasible, however pt with functional decline and inability to participate in therapy prior to admission. Family receptive and verbalized understanding, stating they have a lot to think
about. SOFTWARE TECHNICIAN to follow pending decisions.
[2025-08-29] MEDS: HEPARIN SC (21:33)
[2025-08-29] MEDS: REMOVE LIDOCAINE PATCH 1 PATCH REMOVE (21:33)
[2025-08-29 23:00] VITALS: BP 138/85
[2025-08-29 23:23] LABS: Sodium 147 mmol/L (135-145)
[2025-08-30] MEDS: DILAUDID 0.25 MG IV ×2 (02:40→11:53)
[2025-08-30] MEDS: D5/0.45%NACL 1000 IV (05:21)
[2025-08-30 08:00] VITALS: BP 156/91
[2025-08-30] MEDS: LIDOCAINE 4% PATCH 1 PATCH TOPICAL (08:03)
[2025-08-30] MEDS: HEPARIN 5000 UNITS SC (08:04)
[2025-08-30 08:26] LABS: Hematocrit 44.2 % (39.0-52.0); Hemoglobin 13.8 g/dL (13.0-18.0); Mean Corp Hgb Conc. 31.2 g/dL (33.0-37.0); Mean Corpuscular Volume 90.8 fL (80.0-94.0); Platelet Count 268 10^3/uL (130-400); Red Cell Dist. Width 13.8 % (11.5-14.5)
[2025-08-30 09:00] LABS: Blood Urea Nitrogen 55 mg/dl (9-20); Calcium 9.1 mg/dl (8.4-10.2); Carbon Dioxide 27 mmol/L (22-30); Chloride 119 mmol/L (98-107); Estimated Creatinine Clearance 39 ml/min; Glucose 131 mg/dl (70-99); Potassium 3.8 mmol/L (3.5-5.1); Sodium 152 mmol/L (135-145); eGFR > 60.00
--- NOTE | 2025-08-30 09:13 | HOSPNOTE ---
Addendum entered by Kimberley Olivarez RN 08/30/25 16:40:
Spoke to primary rn- pt restrained, agitated, dilaudid given prn. Spoke to son Gerry, offered comfort measures, moving to [address] [place] [address] and plan for inpatient hospice tomorrow. Gerry and family in agreement. RN, CHAGO, Attending updated. Reviewed to medicate to
remove restraints. Will meet Gerry at 10am tomorrow
Original Note:
Spoke to son Gerry regarding hospice services. Reviewed hospice and the philosophy and answered his questions. He reports this information is very helpful in the decision making process for himself, his mom and siblings. They have not fully decided to
proceed with hospice at this time. They also report patient was at the [facility] for Rehab and they do not wish for him to return there. CHAGO has placed referral to other SNFs. Reviewed we are affiliated with [facility] but not the others as they have
their preferred hospice. We will be available if they opt for hospice services and at a facility we are accepted to. CM updated.
[2025-08-30] MEDS: HYDROPHOR 1 APPLIC TOPICAL (09:18)
--- NOTE | 2025-08-30 10:07 | CM ---
Son SPOKE with hospice Kimberley Cruz,
As per care port Antonying Noe Irina [phone] reviewed clinical family will need to complete financial forms.[facility] can accept needs Financial requested,[facility] can not accept,LM with [facility].
ticket manager from [facility] Gurvinder [phone] and [phone]. given above information as requested by family
PLAN Locate SNF
--- NOTE | 2025-08-30 11:56 | W.PN.HOSP.TC ---
Addendum entered and electronically signed by Sagar Henderson MD 08/30/25 13:15:
Correction: Acute hypernatremia
Switch fluid to D5w. Repeat sodium later today
Original Note:
Today's Communication/Plan
-
Monitor vital signs see plan
Switch fluids to D5 water
Repeat sodium later today
Monitor mental status
cw abx
Discussed with son regarding goals of care, they will talk amongst their family and will decide on hospice
Assessment / Plan
Assessment / Plan
General: Lethargic, severe cachexia
HEENT: Dry mucous membrane, normocephalic
Respiratory: Clear, No wheeze
Cardiac: S1/S2 and Regular Rhythm
GI: Soft, Non Tender, Non Distended
Musculoskeletal: No Edema
Neuro: Lethargic
Urinary tract infection
Believe encephalopathy is likely secondary to worsening Parkinson's
Urine culture with klebsiella, follow culture
Continue with ceftriaxone
Monitor mental status
- Tylenol p.o. for fever or pain
-head CT negative.
# Dysphagia/failure to thrive
Cachexia on exam
- Patient on mechanical soft, nectar thick liquid at alf
- Speech eval re NPO; VSE noted with silent aspiration. Speech recommend NPO.
Discussed with son, patient would not want any feeding tube however wants to be treated. Discussed hospice as well which family will talk amongst themselves and will let us know. Hospice already involved
# Acute kidney injury likely dehydration
- Creatinine 1.4 on admission
Now improving
- Continue fluids
- Continue to monitor BMP
Acute hyponatremia
Switch fluid to D5w. Repeat sodium later today
# Parkinson disease with dyskinesia
-Amantadine continued
- Carbidopa continue
-Clonazepam continued for anxiety
- Melatonin continued for sleep
- Mirtazapine for sleep
# Hyperlipidemia
- Zocor continue
# Hypotension
- Midodrine continued
Sacrum , Stage 1 Pressure Injury, POA
Bilateral Heels, Stage 1 Pressure Injury, POA
# DVT prophylaxis
- Heparin subcu
#CODE STATUS#
- DNR
Discussed with son. Will see how patient does with antibiotics.
Discussed with son, patient would not want any feeding tube however wants to be treated. Discussed hospice as well which family will talk amongst themselves and will let us know. Hospice already involved
I spent a total of 51 minutes with the patient or on the floor. More than 50% of this time involved counseling and coordination of care.
Anticipated Discharge: > 48 hours
Subjective/Interval History
-
Date of Service: August 30, 2025
Lethargic
Objective Data
-
Labs:
Laboratory Results
08/30/25
07:52
WBC 7.7
Hgb 13.8
Hct 44.2
Plt Count 268
Sodium 152 H
Potassium 3.8
Chloride 119 H
Carbon Dioxide 27
BUN 55 H
Creatinine 1.0
Glucose 131 H
Calcium 9.1
Vital Signs:
Vital Signs
Temp Pulse Resp BP Pulse Ox
98.1 F 85 16 156/91 95
08/29/25 23:00 08/30/25 08:00 08/30/25 08:00 08/30/25 08:00 08/30/25 08:00
I&O
08/29/25 08/30/25 08/31/25
06:59 06:59 06:59
Intake Total 466 / 466
Output Total 200 / 200 400 / 400
Balance -200 / -200 66 / 66
--- NOTE | 2025-08-30 13:28 | PN.CDI ---
CDI
- -
CDI:
Physician Documentation Request
Admit Date: 08/28/25 17:43
Dear Doctor Santiago,
Clinical Indicators:
Patient admitted with MICHAEL and UTI with worsening Parkinson's disease.
08/30 PN: severe cachexia
08/29 note/assessment: Subcutaneous Loss-Orbital: Severe Muscle Loss-Calf: Severe Temporal: Severe
'..pt with a 17% weight loss in 4 months, significant.'
'With weight loss of > 10% in 6 months, < 75% estimated needs > 1 month and
observed muscle and fat wasting pt meets AND/ASPEN criteria for severe protein
calorie malnutrition.'
Based on the above information and your assessment, which of the following most accurately represents the patient's nutritional status?
Severe Protein Calorie Malnutrition
Other (please specify)
[place] Criteria ([facility] Hospitalist 2017)
2 or more criteria must be present for either
non severe or severe malnutrition
Note that the criteria differs related to the
presence of an acute or chronic illness
Chronic Illness
Energy Intake Non Severe: <75% for >1 month
Severe: <75% for >1 month
Weight Loss Non Severe: 5% over 1 month
7.5% over 3 months
10% over 6 months
20% over 1 year
Severe: >5% over 1 month
>7.5% over 3 months
>10% over 6 months
>20% over 1 year
Body Fat Non Severe: Mild Loss
Severe: Severe Loss
Muscle Mass Non Severe: Mild Loss
Severe: Severe Loss
Fluid Accumulation Non Severe: Mild Accumulation
Severe: Moderate to severe
accumulation
Reduced Multi Skilled Operator Strength Non Severe: N/A
Severe: Measurably reduced
Additional criteria that can be used to Determine if Mild or Moderate Malnutrition (Merck Manual 2018)
Mild Moderate Severe
Albumin gm/dl <3.0 gm/dl <2.5 gm/dl <2.0 gm/dl
Pre Albumin mg/dl <15 gm/dl <10 mg/dl <5.0 mg/dl
BMI <18.5 <17 <16
Use of terms such as suspected, likely, concern for, or probable (associated with a specific diagnosis that is being evaluated, monitored, or treated as if it exists) are acceptable and can be coded in the inpatient setting, when documented at the
time of discharge.
Thank you,
LEONID Christine RN
CDI Specialist
available via tiger text
Please use your independent medical judgment in providing your response.
[2025-08-30] MEDS: D5W 1000 IV (14:48)
[2025-08-30 16:25] VITALS: BP 142/89
--- NOTE | 2025-08-30 16:40 | W.PN.UPDATE ---
Update Note
Progress Note Update
Discussed with family and hospice. Family agreeable for comfort measures/hospice. Will start comfort measures today and possible transition to hospice tomorrow if patient qualifies. Family is aware that I will discontinue antibiotics and
Parkinson medications. Patient to be transferred to [address]. Morphine as needed with transition to drip if needed
[2025-08-30] MEDS: STERILE WATER FOR INJECTION IV (16:55)
[2025-08-30] MEDS: ROCEPHIN IV (16:55)
[2025-08-30] MEDS: REMOVE LIDOCAINE PATCH 1 PATCH REMOVE (19:39)
[2025-08-30 20:49] VITALS: BP 116/72
--- NOTE | 2025-08-30 20:51 | TRANSFER ---
report called to RN at 1999. patient brought down to floor with all belongings.
--- NOTE | 2025-08-30 20:52 | PTCARENOTE ---
Pt appear comfortable restrains removed.
[2025-08-30] MEDS: MORPHINE SULFATE 1 MG IV (23:06)
[2025-08-30] MEDS: ATIVAN 0.5 MG IV (23:12)
[2025-08-31] MEDS: MORPHINE SULFATE 1 MG IV ×3 (01:38→11:48)
[2025-08-31 07:10] VITALS: BP 151/101
[2025-08-31] MEDS: ATIVAN 0.5 MG IV (08:44)
[2025-08-31] MEDS: LIDOCAINE 4% PATCH 1 PATCH TOPICAL (08:46)
[2025-08-31] MEDS: HYDROPHOR TOPICAL (08:47)
--- NOTE | 2025-08-31 10:13 | W.PN.HOSP.TC ---
Addendum entered and electronically signed by Sagar Henderson MD 08/31/25 11:17:
Time of discharge 39 minutes
Original Note:
Today's Communication/Plan
-
monitor vitals
see plan
currently on comfort
morphine and ativan
hospice involved
transition to [facility] today
Assessment / Plan
Assessment / Plan
General: Lethargic, severe cachexia
HEENT: Dry mucous membrane, normocephalic
Cardiac: S1/S2 and Regular Rhythm
GI: Soft, Non Tender
Neuro: Lethargic
# Dysphagia/failure to thrive
Cachexia on exam
- Patient on mechanical soft, nectar thick liquid at long-term
- Speech eval re NPO; VSE noted with silent aspiration. Speech recommend NPO.
Discussed with son and hospice. Family agreeable for comfort measures/hospice. currently on comfort. required IV ativan and morphine overnight. Plan for dc to [facility] today. Family is aware that I will discontinue antibiotics and Parkinson
medications. Patient Morphine as needed with transition to drip if needed
IV ativan
Other Medical hx:
Urinary tract infection
Believe encephalopathy is likely secondary to worsening Parkinson's
# Acute kidney injury
Acute hyponatremia
Switch fluid to D5w. Repeat sodium later today
# Worsening Parkinson disease with dyskinesia
Anxiety
# Hyperlipidemia
# Hypotension
Sacrum , Stage 1 Pressure Injury, POA
Bilateral Heels, Stage 1 Pressure Injury, POA
Severe Protein Calorie Malnutrition
# DVT prophylaxis
on comfort
#CODE STATUS#
- DNR
Anticipated Discharge: Today
Subjective/Interval History
-
Date of Service: August 31, 2025
agitated overnight, currently comfortable
Objective Data
-
Vital Signs:
Vital Signs
Temp Pulse Resp BP Pulse Ox
97.4 F 83 18 151/101 95
08/31/25 07:10 08/31/25 07:10 08/31/25 07:10 08/31/25 07:10 08/31/25 07:10
I&O
08/30/25 08/31/25 09/01/25
06:59 06:59 06:59
Intake Total 466 / 466
Output Total 400 / 400
Balance 66 / 66
--- NOTE | 2025-08-31 10:16 | HOSPNOTE ---
Evaluated and appropriate for inpatient hospice for pain and anxiety management. Will be meeting son Gerry to sign consents. Attending and RN updated. Admissions notified
--- NOTE | 2025-08-31 11:00 | PTCARENOTE ---
Patient restless, taking of clothes, slight moaning and c/o back pain. Patient speaks in a hushed slow speech. Morphine and Ativan given with relief. Son aty bedside. Patient to transition in inpatient hospice.
--- NOTE | 2025-08-31 11:14 | W.DCSUMMARY ---
Discharge Summary
Discharge Data
Date of Admission: 08/28/25
Date of Discharge: 08/31/25
-
Pending Results: No
Hospital Course
79-year-old male with past medical history of worsening Parkinson disease with dyskinesia, anxiety, hypertension, hyperlipidemia came to the hospital with dysphagia and failure to thrive. Patient was cachectic on exam. On this hospitalization
patient also had acute kidney injury along with urinary tract infection and hypernatremia. Patient symptoms were thought were likely secondary to worsening Parkinson's disease. Patient was treated medically however his symptoms continue to get
worse. Goals of care was discussed and family did not wanted to pursue feeding tube and agreed on comfort/hospice. Patient was then put on morphine and Ativan. Patient was also seen by hospice and was then discharged on inpatient hospice.
Discharge Plan
-
Patient Disposition: Hospice - Inpatient
Discharge Diagnosis/Procedures: Dysphagia/failure to thrive
Worsening Parkinson disease with dyskinesia and
Urinary tract infection
Acute kidney injury
Hypernatremia
Condition: Critical
Diet: As tolerated
Activity Restrictions/Additional Instructions:
Wound Care Instructions
Scalp: clean with soap and water, keep open to air. If starts to drain can cover with silicone foam and change prn soilage.
Sacrum: clean with soap and water, silicone foam change q 3 days and prn soilage
Legs/abrasions: after bathing apply mineral oil daily.
Air mattress with turning schedule
Referrals:
Enrique Little DO [Family Provider, General]
Prescriptions:
New
bisacodyl 10 mg Suppository
10 mg GA [id number] PRN (Reason: constipation) Qty: 0 0RF
hyoscyamine sulfate 0.125 mg/mL Drops
0.125 mg sublingual Q4HPRN PRN (Reason: excessive secretions) Qty: 0 0RF
polyethylene glycol 3350 17 gram Powder In Packet
17 g PO DAILYPRN PRN (Reason: constipation) Qty: 0 0RF
glycopyrrolate 0.2 mg/mL Solution
0.2 mg IV Q4HPRN PRN (Reason: excessive secretions) Qty: 0 0RF
Aquaphor Healing 41 % Ointment
1 applic topical DAILY Qty: 0 0RF
acetaminophen 325 mg Tablet
650 mg PO Q4HPRN PRN (Reason: mild pain/DAUGHERTY/temp> 100.4F) Qty: 0 0RF
sennosides-docusate sodium [Senna Plus] 8.6-50 mg Tablet
1 tab PO BIDPRN PRN (Reason: constipation) Qty: 0 0RF
Continued
lidocaine 4 % Adhesive Patch,Medicated
1 patch TOPICAL DAILY
Discontinued
acetaminophen [Tylenol] 325 mg Tablet
650 mg PO Q6HPRN PRN (Reason: mild pain)
Theragen Tablet
1 tab PO DAILY
melatonin 3 mg Tablet
3 mg PO HS
amantadine HCl 100 mg Capsule
100 mg PO TID
magnesium hydroxide [Milk of Magnesia] 400 mg/5 mL Suspension
2,400 mg PO DAILYPRN PRN (Reason: if no bm by 3rd day)
bisacodyl [Dulcolax (bisacodyl)] 10 mg Suppository
10 mg GA DAILYPRN PRN (Reason: if no bm by 3rd day give on 4th day)
simvastatin [Zocor] 20 mg Tablet
20 mg PO HS
Fleet Enema 19-7 gram/118 mL Enema
118 ml GA DAILYPRN PRN (Reason: if no bm by the end on day 4)
docusate sodium [Colace] 100 mg Capsule
100 mg PO DAILY
folic acid 1 mg Tablet
1 mg PO DAILY
midodrine 2.5 mg Tablet
2.5 mg PO DAILY
carbidopa-levodopa 25-100 mg Tablet
1.5 tab PO DAILY
carbidopa-levodopa 25-100 mg Tablet
2 tab PO TID
carbidopa-levodopa 25-100 mg Tablet
2.5 tab PO DAILY
clonazepam 0.125 mg Tablet,Disintegrating
0.125 mg PO HS
clonazepam 0.125 mg Tablet,Disintegrating
0.125 mg PO TIDPRN PRN (Reason: anxiety)
mirtazapine 7.5 mg Tablet
7.5 mg PO HS
trospium 20 mg Tablet
20 mg PO BID
cholecalciferol (vitamin D3) [Vitamin D3] 25 mcg (1,000 unit) Tablet
25 mcg PO DAILY
calcium carbonate-vitamin D3 [Calcium 600 + D(3)] 600 mg-10 mcg (400 unit) Tablet
1 tab PO DAILY
coQ10 (ubiquinol) 200 mg Capsule
200 mg PO DAILY
selenium 200 mcg Capsule
200 mcg PO DAILY
lidocaine 4 % Gel
1 applic TOPICAL DAILY
Discharge Orders:
Discharge Patient (As Directed); Ordered 08/31/25
Ordered By: Sagar Henderson
Discharge Date and Time
Print Language: ETHIOPIAN
[2025-08-31] MEDS: HYDROPHOR 1 APPLIC TOPICAL (11:50)
--- NOTE | 2025-08-31 12:05 | CM ---
CM following re: discharge planning.
Reviewed pt's chart, met with pt and pt's son at bedside.
Per hospice plan administrator pt is accepted for admission to inpatient hospice with hospice [facility].
D/C plan: inpatient hospice with hospice [facility].
CM is available for emotional support.
== END 2025-08-31 11:15 | disposition hospice, inpatient (51) | DRG 56 ==
LOC: 2 NORTH 17:43
PROVIDERS: Registered Nurse; ADMITTING PHYSICIAN Internal Medicine; ATTENDING PHYSICIAN Internal Medicine; EMERGENCY PHYSICIAN Emergency Medicine; FAMILY PHYSICIAN Internal Medicine
DX: G20.B1 Parkinson's disease with dyskinesia, without mention of fluctuations (principal); E43 Unspecified severe protein-calorie malnutrition; G92.8 Other toxic encephalopathy; F02.84 Dementia in other diseases classified elsewhere, unspecified severity, with anxiety; N39.0 Urinary tract infection, site not specified; N17.9 Acute kidney failure, unspecified; E87.0 Hyperosmolality and hypernatremia; R64 Cachexia; Z68.1 Body mass index [BMI] 19.9 or less, adult; R62.7 Adult failure to thrive; E78.5 Hyperlipidemia, unspecified; R13.10 Dysphagia, unspecified; Z66 Do not resuscitate; L89.151 Pressure ulcer of sacral region, stage 1; L89.621 Pressure ulcer of left heel, stage 1; L89.611 Pressure ulcer of right heel, stage 1; D64.9 Anemia, unspecified; N18.9 Chronic kidney disease, unspecified; I12.9 Hypertensive chronic kidney disease with stage 1 through stage 4 chronic kidney disease, or unspecified chronic kidney disease
CPT/HCPCS: 51701; 51798; 70450; 74230; 80048; 80053; 81003; 81015; 84295; 85025; 85027; 87070; 87077; 87086; 87147; 87186; 92610; 92611; 93005; 96361; 96374; 99285

== ENCOUNTER 2025-08-31 12:23 | Inpatient (IN) | payer OTHER, SELFPAY ==
--- NOTE | 2025-08-31 11:22 | ADM.HSP ---
Admission - Hospice
History of Present Illness
Inpatient hospice
Reason for Hospice Admission
79-year-old male with past medical history of worsening Parkinson disease with dyskinesia, anxiety, hypertension, hyperlipidemia came to the hospital with dysphagia and failure to thrive. Patient was cachectic on exam. On this hospitalization
patient also had acute kidney injury along with urinary tract infection and hypernatremia. Patient symptoms were thought were likely secondary to worsening Parkinson's disease. Patient was treated medically however his symptoms continue to get
worse. Goals of care was discussed and family did not wanted to pursue feeding tube and agreed on comfort/hospice. Patient was then put on morphine and Ativan. Patient was also seen by hospice and was accepted on inpatient hospice.
Review of Systems
Unable to obtain full review of systems at this time due to: Acuity and Unresponsive
Physical Exam
General: Appears in Distress and Cachectic
Respiratory: Clear to Auscultation
Cardiology: Regular Rhythm
GI: Soft
Musculoskeletal: No Edema
Neuro: Sedated
Psych: Calm
Assessment/Medication Plan
Generic Name Dose Route Start Last Admin
Trade Name Freq PRN Reason Stop Dose Admin
Acetaminophen 650 mg 08/31/25 11:18
Acetaminophen 325 Mg Tablet PO 09/28/25 11:17
Q4HPRN PRN
mild pain, DAUGHERTY, or temp >100.4F
Acetaminophen 650 mg 08/31/25 11:18
Acetaminophen 650 Mg Rectal Suppository RECTAL 09/28/25 11:17
Q4HPRN PRN
mild pain, DAUGHERTY, or temp >100.4F
Bisacodyl 10 mg 08/31/25 11:18
Bisacodyl 10 Mg Rectal Suppository RECTAL 09/28/25 11:17
DAILYPRN PRN
if no BM for 3 days
Glycopyrrolate 0.2 mg 08/31/25 11:18
Glycopyrrolate 0.2 Mg/Ml Vial IV 09/28/25 11:17
Q4HPRN PRN
excessive secretions
Hyoscyamine Sulfate 0.125 mg 08/31/25 11:18
Hyoscyamine Sulfate 0.125 Mg/Ml In Oral Syringe SL 09/28/25 11:17
Q4HPRN PRN
excessive secretions
Morphine Sulfate/Sodium Chloride 100 mg in 100 mls @ 0 mls/hr 08/31/25 11:30
Morphine IV
PER PROTOCOL JU
Protocol
Per Protocol
Lorazepam 1 mg 08/31/25 11:18
Lorazepam 2 Mg/Ml Vial IV 09/28/25 11:17
Q2HPRN PRN
anxiety
Protocol
Morphine Sulfate 1 mg 08/31/25 11:18
Morphine 2 Mg/Ml Syringe IV 09/14/25 11:17
Q1HPRN PRN
moderate-severe pain / dyspnea
Morphine Sulfate 0 mg 08/31/25 11:18
Morphine 2 Mg/Ml Syringe IV 09/14/25 11:17
[id number] PRN
moderate-severe pain / dyspnea
Protocol
Ondansetron HCl 4 mg 08/31/25 11:18
Ondansetron 4 Mg/2 Ml Vial IV 09/28/25 11:17
Q6HPRN PRN
nausea/vomiting
Pharmacy Profile Note 0 unit 08/31/25 12:[address] 1 Unit IV 09/28/25 11:59
DIRECTED JU
Dysphagia/failure to thrive
Cachexia on exam
Worsening Parkinson's disease
Patient is now on inpatient hospice
Hospice following
Continue with IV Ativan, morphine. Morphine drip if needed
Other Medical hx:
Urinary tract infection
Believe encephalopathy is likely secondary to worsening Parkinson's
# Acute kidney injury
# Worsening Parkinson disease with dyskinesia
Anxiety
# Hyperlipidemia
# Hypotension
Sacrum , Stage 1 Pressure Injury, POA
Bilateral Heels, Stage 1 Pressure Injury, POA
Severe Protein Calorie Malnutrition
# DVT prophylaxis
on comfort
#CODE STATUS#
- DNR
[2025-08-31 12:28] VITALS: BP 157/101
[2025-08-31] MEDS: MORPHINE SULFATE 1 MG IV ×2 (14:20→19:41)
[2025-08-31] MEDS: ATIVAN 1 MG IV ×2 (14:25→19:43)
[2025-08-31 19:52] VITALS: BP 133/82
--- NOTE | 2025-08-31 22:47 | HOSPNOTE ---
Patient admitted to inpatient hospice for anxiety and pain management. Hospice will visit daily.
[2025-09-01] MEDS: MORPHINE SULFATE 1 MG IV ×4 (01:01→14:28)
[2025-09-01] MEDS: NSS (PRESERVATIVE FREE) 1 ML IV (05:47)
[2025-09-01] MEDS: ATIVAN 1 MG IV ×2 (05:47→16:42)
[2025-09-01 07:15] VITALS: BP 136/86
--- NOTE | 2025-09-01 10:14 | CM ---
Pt is a LTC/private pay resident from [facility]
Family not pleased with facility and [facility], was working on transferring to pt alternate SNFs
[facility] involved in pt's care
Pt on service for [facility] hospice
CM will continue to follow pt for planning and support as needed
--- NOTE | 2025-09-01 11:21 | W.PN.HOSP.TC ---
Today's Communication/Plan
-
continue comfort care measures
Assessment / Plan
Assessment / Plan
Anticipated Discharge: > 48 hours
Subjective/Interval History
-
Date of Service: September 01, 2025
appears comfortable. maintained on morphine gtt
family at bedisde
Objective Data
-
Vital Signs:
Vital Signs
Temp Pulse Resp BP Pulse Ox
97.4 F 89 12 136/86 86
09/01/25 07:15 09/01/25 07:15 09/01/25 07:15 09/01/25 07:15 09/01/25 07:15
I&O
08/31/25 09/01/25 09/02/25
06:59 06:59 06:59
Intake Total 0 / 0
Balance 0 / 0
[2025-09-01] MEDS: NSS (PRESERVATIVE FREE) 0.5 ML IV (16:42)
[2025-09-01 19:43] VITALS: BP 147/94
[2025-09-02 07:15] VITALS: BP 123/78
--- NOTE | 2025-09-02 09:25 | HOSPNOTE ---
Patient is unresponsive, Flacc elevated, facial grimacing, ridged and tremulous. Absent BS in all quads, mottling to lower extremities, pulses strong. Patient repositioned to left side. TT patients nurse to medicate with Morphine and Ativan at time
of visit. Would encourage to medicate prior to care. Sons at bedside, no questions or concerns at this time. Emotional support provided. Patient will remain [facility] for management of pain and anxiety.
[2025-09-02] MEDS: MORPHINE SULFATE 1 MG IV ×3 (09:36→11:53)
[2025-09-02] MEDS: ATIVAN 1 MG IV (09:36)
[2025-09-02] MEDS: NSS (PRESERVATIVE FREE) 0.5 ML IV (09:37)
--- NOTE | 2025-09-02 11:36 | W.PN.HOSP.TC ---
Today's Communication/Plan
-
Assessment / Plan
Assessment / Plan
continues on comfort care
heading towards morphine gtt
Anticipated Discharge: > 48 hours
Subjective/Interval History
-
Date of Service: September 02, 2025
seen and examiend
remains on comfort care
Objective Data
-
Vital Signs:
Vital Signs
Temp Pulse Resp BP Pulse Ox
98.1 F 98 12 123/78 94
09/02/25 07:15 09/02/25 07:15 09/02/25 07:15 09/02/25 07:15 09/02/25 07:15
I&O
09/01/25 09/02/25 09/03/25
06:59 06:59 06:59
Intake Total 0 / 0
Balance 0 / 0
[2025-09-02] MEDS: MORPHINE 100 IV (12:14)
--- NOTE | 2025-09-02 17:20 | PTCARENOTE ---
pt started on Morphine gtt today, comfortable, family at bedside.
[2025-09-02 19:00] VITALS: BP 87/58
[2025-09-02] MEDS: MORPHINE SULFATE 2 MG IV (22:27)
[2025-09-03] MEDS: MORPHINE SULFATE 2 MG IV ×3 (02:05→03:20)
--- NOTE | 2025-09-03 08:29 | W.DCSUMMARY ---
Discharge Summary
Discharge Data
Date of Admission: 08/31/25
Date of Discharge: 09/03/25
-
Pending Results: No
Hospital Course
79-year-old male with past medical history of worsening Parkinson disease with dyskinesia, anxiety, hypertension, hyperlipidemia came to the hospital with dysphagia and failure to thrive. Patient was cachectic on exam. On this hospitalization
patient also had acute kidney injury along with urinary tract infection and hypernatremia. Patient symptoms were thought were likely secondary to worsening Parkinson's disease. Patient was treated medically however his symptoms continue to get
worse. Goals of care was discussed and family did not wanted to pursue feeding tube and agreed on comfort/hospice. Patient was then put on morphine and Ativan. Patient was also seen by hospice and was then discharged on inpatient hospice.
exam performed
immediate cause od
ftt
parkinson disease
Discharge Plan
-
Referrals:
UNKNOWN,NO INTERVIEW [Family Provider]
Prescriptions:
No Action
lidocaine 4 % Adhesive Patch,Medicated
1 patch TOPICAL DAILY
bisacodyl 10 mg Suppository
10 mg CA [id number] PRN (Reason: constipation) Qty: 0 0RF
hyoscyamine sulfate 0.125 mg/mL Drops
0.125 mg sublingual Q4HPRN PRN (Reason: excessive secretions) Qty: 0 0RF
polyethylene glycol 3350 17 gram Powder In Packet
17 g PO DAILYPRN PRN (Reason: constipation) Qty: 0 0RF
glycopyrrolate 0.2 mg/mL Solution
0.2 mg IV Q4HPRN PRN (Reason: excessive secretions) Qty: 0 0RF
acetaminophen 325 mg Tablet
650 mg PO Q4HPRN PRN (Reason: mild pain/DAUGHERTY/temp> 100.4F) Qty: 0 0RF
sennosides-docusate sodium [Senna Plus] 8.6-50 mg Tablet
1 tab PO BIDPRN PRN (Reason: constipation) Qty: 0 0RF
Aquaphor Healing 41 % ointment
1 applic topical DAILY
Discharge Date and Time
Print Language: URDU
--- NOTE | 2025-09-03 10:42 | PTCARENOTE ---
this RN assumed care for this patient. while change of shift rounds walked in to the patient's room to observe him apneic and with no heart beat. son at the bedside. IV Morphine gtt stopped and hospitalist called to pronounce the patient. ortho rn
made aware. postmortem care completed on the patient
--- NOTE | 2025-09-03 11:44 | W.PN.DEATH ---
Pronouncement of
-
Called to see patient to pronounce.
No spontaneous heart tones or respirations noted.
Patient not responsive to verbal stimuli.
Patient is pronounced .
Time of : 07:29
Date of : 09/03/25
Family Notified: Yes
== END 2025-09-03 12:58 | disposition expired | DRG 951 ==
LOC: 2 NORTH 12:23
PROVIDERS: ADMITTING PHYSICIAN Internal Medicine; ATTENDING PHYSICIAN Hospitalist
DX: Z51.5 Encounter for palliative care (principal); R64 Cachexia; E87.0 Hyperosmolality and hypernatremia; N17.9 Acute kidney failure, unspecified; N39.0 Urinary tract infection, site not specified; I10 Essential (primary) hypertension; R62.7 Adult failure to thrive; E78.5 Hyperlipidemia, unspecified; G20.B1 Parkinson's disease with dyskinesia, without mention of fluctuations; F41.9 Anxiety disorder, unspecified; R13.10 Dysphagia, unspecified